=== PATIENT | male | born 1990 | race African-American/Black ===

== ENCOUNTER 2020-12-07 08:15 | Emergency (ER) | payer OTHER ==
[~2020-12-07] VITALS: Ht 167.6 cm; Wt 70.9 kg
--- NOTE | 2020-12-07 09:17 | REP ---
INDICATION: chest pain, left. COMPARISON: No comparison study. TECHNIQUE: Two views.. FINDINGS: The lungs are well inflated and free of infiltrate. The pleural angles are sharp. The heart size is normal. Pulmonary vasculature is not increased. No significant bony abnormality is seen. IMPRESSION: Negative chest x-ray. <Electronically signed by Lalito Rojas > 12/07/20 [id number]
[2020-12-07 09:33] LABS: BASO % 0.7 % (0.0-1.0); EOS # 0.1 10^3/uL (0.0-0.5); EOS % 3.4 % (0.0-3.0); HEMATOCRIT 39.2 % (42.0-52.0); HEMOGLOBIN 13.2 g/dl (13.5-17.5); LYMPH % 34.5 % (24.0-44.0); MEAN CORPUSCULAR HEMOGLOBIN 30.2 pg (27.0-33.0); MEAN CORPUSCULAR HGB CONC 33.7 g/dl (32.0-36.5); MEAN CORPUSCULAR VOLUME 89.7 fl (80.0-96.0); MONO # 0.4 10^3/uL (0.0-0.8); MONO % 13.1 % (2.0-8.0); NEUTROPHILS # 1.4 10^3/uL (1.5-8.5); PLATELET COUNT, AUTOMATED 219 10^3/uL (150-450); RED BLOOD COUNT 4.37 10^6/uL (4.30-6.10); WHITE BLOOD COUNT 2.9 10^3/uL (4.0-10.0)
[2020-12-07 09:59] LABS: BLOOD UREA NITROGEN 13 MG/DL (7-18); CALCIUM LEVEL 8.9 MG/DL (8.5-10.1); CARBON DIOXIDE LEVEL 29 MEQ/L (21-32); CHLORIDE LEVEL 107 MEQ/L (98-107); CK-MB VALUE MASS < 1.0 NG/ML (<3.6); CPK CREATINE PHOSPHOKINASE 347 U/L (39-308); CREATININE FOR GFR 1.08 MG/DL (0.70-1.30); GLOMERULAR FILTRATION RATE > 60.0 (>60); GLUCOSE, FASTING 84 MG/DL (70-100); MB/CK RELATIVE INDEX 0.29 (< OR =4); POTASSIUM SERUM 4.5 MEQ/L (3.5-5.1); SODIUM LEVEL 139 MEQ/L (136-145); TROPONIN I < 0.02 NG/ML (< 0.10)
[2020-12-07] MEDS ORDERED: MOBI4TAB PO (12:06)
[2020-12-07 12:31] VITALS: BP 114/69
--- NOTE | 2020-12-07 20:28 | ECGEPIP ---
[facility] - ED Test Date: 2020-12-07 Pat Name: VITA NIÑO Department: Room: - Gender: Male Sr. Vendor Management Associate: : [id number] Requested By: MARCIA Huitron Order Number: [id number] Reading MD: Julian Montgomery Measurements Intervals [place] Rate: 54 P: 34 MS: 166 QRS: 63 QRSD: 86 T: 43 QT: 398 QTc: 377 Interpretive Statements Sinus bradycardia Early repolarization NO PRIORS FOR COMPARISON Electronically Signed on 12-07-2020 20:28:19 EDT by Julian Montgomery
== END 2020-12-07 12:32 | disposition home or self-care (01) ==
LOC: M ED 08:15
DX: R07.89 Other chest pain (principal); R00.1 Bradycardia, unspecified